=== PATIENT | male | born 1970 | race Caucasian/White ===

== ENCOUNTER 2023-06-24 11:40 | Emergency (ER) | payer MEDICARE, SELFPAY ==
--- NOTE | ~2023-06-24 | CT_ITS ---
EXAMINATION: CT brain wo con INDICATION: Seizure, history of hydrocephalus COMPARISON: None TECHNIQUE: Standard unenhanced head CT. The dose-length product (DLP) was 756.67 mGy-cm. The mA was a djusted according to patient size. Iterative reconstruction technique was employed. FINDINGS: No intracranial hemorrhage, acute infarction, or abnormal mass lesion. There is marked enla rgement of the lateral ventricles. A ventriculostomy enters through the right parietal region and in with its tip near the midline. There is encephalomalacia of the parietal and occipital lobes. There a re chronic appearing bilateral extra-axial fluid collections with associated calcification or surgica l material. The basal cisterns are patent. The orbits are normal. The paranasal sinuses, mastoids and calvarium are normal. IMPRESSION: 1. Marked hydrocephalus without acute intracranial abnormality. Reviewed, dictated and finalized at location F. 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
--- NOTE | ~2023-06-24 | XR_ITS ---
EXAMINATION: XR chest 1V portable INDICATION: Transient alteration of awareness TECHNIQUE: Portable AP chest at 1347 hours COMPARISON: None available FINDINGS: The lungs are free of acute opacities. No pleural effusion or pneumothorax. The cardiomedia stinal silhouette is normal. Ventriculoperitoneal shunt catheter tubing courses over the right hemith orax. There appears to be calcification around a PERINATAL TECHNICIAN shunt catheter fragment overlying the right upper hemithorax. IMPRESSION: 1. No acute cardiopulmonary abnormality. Reviewed, dictated and finalized at location F. RAM WRITER
[2023-06-24 11:40] VITALS: BP 159/77; PULSE 83; RESP 13; TEMP 36.1; O2SAT 96
[2023-06-24 11:45] VITALS: BP 159/77; PULSE 83; RESP 21; O2SAT 100
--- NOTE | 2023-06-24 11:45 | ECG_ITS ---
Measurements Intervals Canvas Rate: 79 P: 55 ID: [id number] QRS: -10 QRSD: 109 T: 33 QT: 382 QTc: 439 Interpretive Statements SINUS RHYTHM VOLTAGE CRITERIA FOR LVH BORDERLINE R WAVE PROGRESSION, ANTERIOR LEADS NONSPECIFIC T-WAVE ABNORMALITY- INFERIOR LEADS BASELINE ARTIFACT- I, II, AVR, AVL BORDERLINE ECG NO PREVIOUS ECG AVAILABLE FOR COMPARISON Electronically Signed On 06-24-2023 12:02:10 OPHTHALMOLOGIST RETINA SPECIALIST by Tin Alaniz D.O.
[2023-06-24 11:47] VITALS: PULSE 82
[2023-06-24 12:02] LABS: Basophils Absolute Auto 0.1 K/mm3 (0.0-0.1); Basophils Percent Auto 0.8 % (0.2-1.2); Eosinophils Percent Auto 0.4 % (0-4.4); Hematocrit 42.9 % (42.0-52.0); Hemoglobin 15.3 g/dL (14.0-18.0); Immature Granulocyte Absolute 0.03 K/mm3 (0.00-0.031); Immature Granulocyte Percent A 0.4 % (0-0.5); Lymphocytes Absolute Auto 1.77 K/mm3 (0.9-3.2); Lymphocytes Percent Auto 22.3 % (18.3-44.2); Mean Corpuscular HGB Conc 35.7 g/dl (32-36); Mean Corpuscular Hemoglobin 30.7 pg (26-34); Mean Corpuscular Volume 86.1 fl (80-100); Mean Platelet Volume 9.3 fl (7.4-10.4); Monocytes Absolute Auto 0.6 K/mm3 (0.1-0.6); Monocytes Percent Auto 7.5 % (2.6-8.5); Neutrophils Absolute Auto 5.5 K/mm3 (1.3-6.7); Neutrophils Percent Auto 68.6 % (45.5-73.1); Platelet Count Result 275 k/mm3 (150-375); Red Blood Count 4.98 M/mm3 (4.6-6.20); Red Cell Distribution Width 12.7 % (11.5-14.5)
--- NOTE | 2023-06-24 12:06 | ED.GENADULT ---
HPI - General Adult General Chief complaint: Syncope Stated complaint: SYNCOPY/ SEIZURE Time Seen by Provider: 06/24/23 11:43 History of Present Illness HPI narrative: 53-year-old male with history of hydrocephalus present in the emergency department for evaluation of possible seizure-like activity. Patient was riding in a vehicle with his family when he leaned to the right and had some snoring respirations. Patient then the wound towards the middle the car and had some unusual movements. Family states that the episode lasted just a few minutes and they pulled the car over. They state that after this episode patient had decreased responsiveness and was unable to wake up. Patient did become more alert and appropriate when EMS arrived. Upon arrival to the emergency department patient is back to his baseline denies any complaints. Patient denies any headache nausea vomiting. Patient denies any associated abdominal pain. Patient does not have recollection the episode. The patient has no prior history of a seizure disorder. Related Data Home Medications Medication Instructions Recorded Confirmed atenolol 100 mg tablet mg 06/24/23 hydrochlorothiazide 25 mg tablet mg 06/24/23 lisinopril 20 mg tablet mg 06/24/23 nifedipine 60 mg tablet,extended mg PO 06/24/23 release 24 hr rosuvastatin 10 mg tablet mg 06/24/23 06/24/23 Allergies Allergy/AdvReac Type Severity Reaction Status Date / Time No Known Allergies Allergy Verified 06/24/23 11:48 Review of Systems Review of Systems: All systems reviewed & are unremarkable except as noted in HPI and below Exam Narrative: APPEARANCE: Well appearing, no pain, no distress, well-nourished. HEAD: normocephalic, atraumatic. EYES: PERRLA/EOMI, conjunctivae clear. NOSE: Normal no drainage EARS:TMS clear with good light reflex. THROAT: Pharynx clear, no exudate. NECK: Supple. No adenopathy, no masses. RESPIRATORY: Airway patent, respirations nonlabored. Clear to auscultation bilaterally, no rales, rhonchi, wheezing. CARDIOVASCULAR: Regular rate and rhythm without murmurs rubs or gallops. ABDOMINAL: Soft, nontender, nondistended, normal bowel sounds MUSCULOSKELETAL: Moves all extremities. Strength/ROM intact, No edema, No calf tenderness. NEURO: Alert. Cranial nerves II through XII intact. Grossly intact SKIN: Warm, dry. Normal Color Course Course Emergency Course: 53-year-old male with history of hydrocephalus presented emergency department for evaluation after having a possible seizure. Patient does have history of urinary tract infections. Suspect urinary tract infection may have lowered the patient's seizure threshold. Head CT showed no acute intracranial abnormality. Patient was well-appearing and back to his baseline. I discussed the findings with the patient family they are comfortable the plan for starting antibiotics for the urinary tract infection have a close follow-up with Neurology. All questions and concerns were addressed patient was well-appearing at time of discharge. Vital Signs Vital signs: Vital Signs Temperature 97 F L 06/24/23 11:40 Pulse Rate 83 06/24/23 11:40 Respiratory Rate 13 06/24/23 11:40 Blood Pressure 159/77 H 06/24/23 11:40 Pulse Oximetry 96 06/24/23 11:40 Oxygen Delivery Room Air 06/24/23 11:40 Temperature 97 F L 06/24/23 11:40 Pulse Rate 105 H 06/24/23 13:42 Respiratory Rate 29 H 06/24/23 13:42 Blood Pressure 184/77 H 06/24/23 13:42 Pulse Oximetry 100 06/24/23 13:42 Oxygen Delivery Room Air 06/24/23 11:40 Medical Decision Making Differential Diagnosis Differential Diagnosis: COVID, UTI, seizure, syncope Vital Signs Vital Signs: Vital Signs Temperature 97 F L 06/24/23 11:40 Pulse Rate 83 06/24/23 11:40 Respiratory Rate 13 06/24/23 11:40 Blood Pressure 159/77 H 06/24/23 11:40 Pulse Oximetry 96 06/24/23 11:40 Oxygen Delivery Room Air 06/24/23 11:40 Te
[2023-06-24 12:15] LABS: Alanine Aminotransferase 38 U/L (6-50); Albumin Level 4.7 g/dL (3.5-5.1); Alkaline Phosphatase 56 U/L (38-126); Anion Gap 14 mmol/L (8-16); Aspartate Amino Transferase 35 U/L (17-59); Bilirubin,Total 1.1 mg/dL (0.2-1.3); Blood Urea Nitrogen 14 mg/dL (9-20); Calcium 9.6 mg/dL (8.4-10.2); Carbon Dioxide 22 mmol/L (22-30); Chloride 102 mmol/L (98-107); Estimated CRCL calculation 102 ml/min; Estimated Glomerular Filt Rate > 60; Glucose 148 mg/dL (65-110); Potassium 3.4 mmol/L (3.4-5.0); Sodium 138 mmol/L (137-145)
[2023-06-24 12:45] VITALS: BP 134/73; PULSE 72; RESP 18; O2SAT 100
[2023-06-24 13:42] VITALS: BP 184/77; PULSE 105; RESP 29; O2SAT 100
[2023-06-24 14:13] LABS: Appearance Urine Turbid (Clear); Bacteria Urine Rare /hpf; Bilirubin Urine Negative (Negative); Blood Urine 2+ (Negative); Color Urine Yellow (Yellow); Glucose Urine UA Negative (Negative); Hyaline Casts Urine Present /lpf; Ketones Urine Negative (Negative); Leukocyte Esterase Ur 1+ LEU/UL (Negative); Nitrate Urine Negative (Negative); Protein Urine 2+ mg/dL (Negative); RBC Urine 21-50 /hpf (0-2); Specific Grav Ur 1.016 (1.001-1.035); Spermatozoa Urine Present; Squamous Epithelial Cell Urine Occasional /hpf (Few); WBC Urine 21-50 /hpf; pH Urine 7.5 (5.0-9.0)
[2023-06-24 14:14] LABS: Add Urine Microscopic? YES
[2023-06-24 14:26] LABS: Influenza A QL RT-PCR Negative (Negative); Influenza B QL RT-PCR Negative (Negative); RSV RNA, RT-PCR Negative (Negative); SARS-CoV-2 RNA PCR Negative (Negative)
== END 2023-06-24 15:28 | disposition home or self-care (01) ==
PROVIDERS: Emergency Provider Emergency Medicine; PCP Family Medicine
DX: N39.0 Urinary tract infection, site not specified (principal); R56.9 Unspecified convulsions; Z20.822 Contact with and (suspected) exposure to COVID-19; G91.9 Hydrocephalus, unspecified; R94.31 Abnormal electrocardiogram [ECG] [EKG]
CPT/HCPCS: 36415; 70450; 71045; 80053; 81001; 85025; 87086; 87088; 87637; 93005; 96374; 99284; J0696